=== PATIENT | female | born 1965 | race Caucasian/White ===

== ENCOUNTER 2017-01-04 10:42 | Outpatient (CLI) | payer MEDICAID ==
[2017-01-04 13:06] LABS: CHOL/HDL RATIO 5.6 (<4.4); CHOLESTEROL 209 mg/dL; HDL CHOLESTEROL 37 mg/dL; LDL/HDL RATIO 3.1 (<4.4); TRIGLYCERIDES 297 mg/dL; VLDL CHOLESTEROL 59 mg/dL
== END 2017-01-04 10:43 | disposition home or self-care (01) ==
LOC: LAB.N 10:42
PROVIDERS: ATTEND Nurse Practitioner Gerontology
DX: E78.2 Mixed hyperlipidemia (principal)
CPT/HCPCS: 36415; 80061

== ENCOUNTER 2017-04-07 09:59 | Emergency (ER) | payer MEDICAID ==
[2017-04-07 10:11] VITALS: BP 168/89
--- NOTE | 2017-04-07 11:19 | ED Physician Documentation ---
PD HPI HEENT - Stated complaint Stated Complaint: LT FACIAL SWELLING - Chief complaint Chief Complaint: Heent - History obtained from History obtained from: Patient - History of Present Illness Timing - onset: How many days ago (4) Timing - duration: Days (4) Timing - details: Gradual onset, Still present Location: Tooth (she had tooth extracted 4 days ago urgently due to pain and has had swelling left mandible area since, which is increased today. On AMox for infection.) Associated symptoms: No: Fever, Swollen nodes Similar symptoms before: Has not had sx before Recently seen: Clinic (dentist) Review of Systems Constitutional: denies: Fever Nose: denies: Rhinorrhea / runny nose, Congestion Throat: denies: Sore throat Cardiac: denies: Chest pain / pressure Respiratory: denies: Dyspnea, Cough PD PAST MEDICAL HISTORY - Past Medical History Past Medical History: Yes Cardiovascular: Hypertension Neuro: None Endocrine/Autoimmune: None - Past Surgical History HEENT: Tonsil/Adenoidectomy - Present Medications Home Medications: Ambulatory Orders Medication Instructions Recorded Confirmed Estradiol 0.5 mg PO DAILY 05/03/16 05/03/16 Lisinopril 10 mg PO DAILY 05/03/16 05/03/16 Progesterone,Micronized 05/03/16 [Progesterone] Amox/Clav 500/125 [Augmentin] 1 each PO Q8H 04/07/17 04/07/17 Clindamycin HCl [Cleocin HCl] 300 mg PO TID #20 capsule 04/07/17 HYDROcod/ACETAM 5/325 [[place] 5/325] 1 tab PO Q6H PRN #20 tablet 04/07/17 - Allergies Allergies/Adverse Reactions: Allergies Allergy/AdvReac Type Severity Reaction Status Date / Time No Known Drug Allergies Allergy Verified 02/02/16 10:13 - Social History Does the pt smoke?: Yes Smoking Status: Current every day smoker PD ED PE NORMAL - Vitals Vital signs reviewed: Yes - General General: Alert and oriented X 3, No acute distress, Well developed/nourished - HEENT HEENT: Pharynx benign, Other (healing left lower molar gum without clot. left facial swelling.) - Neck Neck: Supple, no meningeal sign, No adenopathy - Cardiac Cardiac: RRR, No murmur - Respiratory Respiratory: Clear bilaterally Results - Vitals Vitals: Vital Signs - 24 hr 04/07/17 10:08 Temperature 35.8 C L Heart Rate 80 Respiratory 18 Rate Blood Pressure 168/89 H O2 Saturation 97 Oxygen O2 Source Room air PD MEDICAL DECISION MAKING - ED course Complexity details: considered differential (persistent swelling post extraction with gum healing okay. ), d/w patient Departure - Departure Disposition: 01 Home, Self Care Clinical Impression: Dental infection, Status post tooth extraction Condition: Stable Record reviewed to determine appropriate education?: Yes Instructions: ED Tooth Pain Prescriptions: Clindamycin HCl [Cleocin HCl] 300 mg PO TID #20 capsule HYDROcod/ACETAM 5/325 [[place] 5/325] 1 tab PO Q6H PRN #20 tablet PRN Reason: Pain Comments: Drink lots of fluids. Continue the ibuprofen 2-3 times a day. Add clindamycin antibiotic to her current regimen see if that helps with the infection better. Tylenol or hydrocodone if needed for pain. Follow-up with the dentist if not improved over the next several days. Discharge Date/Time: 04/07/17 12:03
[2017-04-07] MEDS ORDERED: CLINDAMYCIN 150 MG CAPSULE PO STA (11:27)
[2017-04-07] MEDS ORDERED: CLINDAMYCIN 150 MG CAPSULE PO ONE (11:39)
== END 2017-04-07 12:03 | disposition home or self-care (01) ==
LOC: ED 09:59
DX: K04.7 Periapical abscess without sinus (principal); Z98.818 Other dental procedure status; F17.200 Nicotine dependence, unspecified, uncomplicated; I10 Essential (primary) hypertension
CPT/HCPCS: 99283; A9270

== ENCOUNTER 2017-06-17 11:12 | Emergency (ER) | payer MEDICAID ==
[2017-06-17 11:30] VITALS: BP 113/68
--- NOTE | 2017-06-17 12:09 | ED Physician Documentation ---
PD HPI URI - Stated complaint Stated Complaint: THROAT PX/DIFF BREATHING - Chief complaint Chief Complaint: General - History obtained from History obtained from: Patient - History of Present Illness Timing - onset: How many days ago (2-3) Timing duration: Days Timing details: Gradual onset Associated symptoms: Fever, Chills, Nasal congestion, Sore throat, Dry cough, Other (biggest complaint is diffuse body aches). No: Chest pain, Dyspnea, NVD Contributing factors: No: Sick contact, Travel Similar symptoms before: Has not had sx before Recently seen: Not recently seen Review of Systems Constitutional: reports: Fever, Chills, Myalgias, Fatigue Nose: reports: Congestion Throat: reports: Sore throat Respiratory: reports: Cough. denies: Dyspnea GI: reports: Nausea. denies: Abdominal Pain, Vomiting, Diarrhea : denies: Dysuria, Frequency Skin: denies: Rash Neurologic: denies: Confused, Headache, Head injury PD PAST MEDICAL HISTORY - Past Medical History Cardiovascular: Hypertension Neuro: None Endocrine/Autoimmune: None - Past Surgical History HEENT: Tonsil/Adenoidectomy - Present Medications Home Medications: Ambulatory Orders Medication Instructions Recorded Confirmed Estradiol 0.5 mg PO DAILY 05/03/16 06/17/17 Lisinopril 10 mg PO DAILY 05/03/16 06/17/17 Dexamethasone [Decadron] 4 mg PO DAILY #5 tablet 06/17/17 HYDROcod/ACETAM 5/325 [[place] 5/325] 1 tab PO Q6H PRN #15 tablet 06/17/17 Naproxen 375 mg PO BID #20 tablet 06/17/17 Ondansetron Odt [Zofran] 4 mg TL Q6H PRN #15 tablet 06/17/17 - Allergies Allergies/Adverse Reactions: Allergies Allergy/AdvReac Type Severity Reaction Status Date / Time No Known Drug Allergies Allergy Verified 06/17/17 11:30 - Social History Does the pt smoke?: Yes Smoking Status: Current every day smoker PD ED PE NORMAL - Vitals Vital signs reviewed: Yes - General General: Alert and oriented X 3, No acute distress, Well developed/nourished - HEENT HEENT: Ears normal, Pharynx benign - Neck Neck: Supple, no meningeal sign, No adenopathy - Cardiac Cardiac: RRR, No murmur - Respiratory Respiratory: Clear bilaterally - Abdomen Abdomen: Soft, Non tender - Derm Derm: Normal color, Warm and dry, No rash - Extremities Extremities: No tenderness to palpate, Normal ROM s pain - Neuro Neuro: Alert and oriented X 3, No motor deficit, Normal speech Results - Vitals Vitals: Oxygen O2 Source Room air - Labs Labs: Microbiology 06/17/17 11:40 Group A Strep Throat Culture - Final Throat MIXED OROPHARYNGEAL CATALINA PRESENT. NO BETA STREP PRESENT IN CULTURE. Laboratory Tests 06/17/17 06/17/17 11:40 11:40 Influenza A (Rapid) Negative Influenza B (Rapid) Negative Influenza Types A,B Ag - Group A Strep Rapid Negative PD MEDICAL DECISION MAKING - ED course Complexity details: considered differential (main issue is significant body pains. Seems flu-like. ), d/w patient Departure - Departure Disposition: 01 Home, Self Care Clinical Impression: Flu-like symptoms Condition: Stable Record reviewed to determine appropriate education?: Yes Instructions: ED Viral Syndrome Follow-Up: Dariana Bose, BUSINESS MANAGER [Primary Care Provider] - Prescriptions: Dexamethasone [Decadron] 4 mg PO DAILY #5 tablet HYDROcod/ACETAM 5/325 [[place] 5/325] 1 tab PO Q6H PRN #15 tablet PRN Reason: Pain Naproxen 375 mg PO BID #20 tablet Ondansetron Odt [Zofran] 4 mg TL Q6H PRN #15 tablet PRN Reason: Nausea / Vomiting Comments: Your symptoms sound flulike though your flu test is negative. Your strep test is also negative. We will presume another viral illness causing this. It will likely be about 7-10 days of illness though it should start tapering in the next couple of days. Will try to treat the symptoms. Use naproxen or ibuprofen 2-3 times daily for pains. Drink lots of fluids. Add Tylenol and/or hydrocodone if needed for pains. Decadron steroid anti-inflammatory daily for 5 more days will help the symptoms as well. Rest at home and drink lots of fluids. Recheck if worsening symptoms generally. Forms: Activity restrictions Discharge Date/Time: 06/17/17 12:36
[2017-06-17] MEDS ORDERED: DEXAMETHASONE 10 MG/ML VIAL PO STA (12:25)
[2017-06-17] MEDS ORDERED: ACETAMINOPHEN 325 MG TABLET PO STA (12:25)
== END 2017-06-17 12:36 | disposition home or self-care (01) ==
LOC: ED 11:12
DX: B34.9 Viral infection, unspecified (principal)
CPT/HCPCS: 87070; 87275; 87276; 87430; 99283; A9270

== ENCOUNTER 2017-06-21 13:25 | Outpatient (CLI) | payer MEDICAID | END 2017-06-21 13:26 | disposition critical access hospital (66) | LOC: EMS 13:25 | PROVIDERS: ATTEND Surgery | DX: R68.89 Other general symptoms and signs (principal) | CPT/HCPCS: A0425; A0429 ==

== ENCOUNTER 2017-06-21 13:44 | Emergency (ER) | payer MEDICAID ==
[2017-06-21 14:33] LABS: BASOPHILS # (AUTO) 0.1 10^3/uL (0.0-0.1); BASOPHILS % (AUTO) 0.7 %; EOSINOPHILS % (AUTO) 0.3 %; HGB - HEMOGLOBIN 14.7 g/dL (12.0-16.0); LYMPHOCYTES % (AUTO) 48.8 %; MEAN CORPUSCULAR HEMOGLOBIN 31.4 pg (27.0-31.0); MEAN CORPUSCULAR VOLUME 92.2 fL (81.0-99.0); MEAN PLATELET VOLUME 7.7 fL (7.9-10.8); MONOCYTES # (AUTO) 0.4 10^3/uL (0.0-1.0); MONOCYTES % (AUTO) 3.8 %; NEUTROPHILS # (AUTO) 4.8 10^3/uL (1.5-6.6); NEUTROPHILS % (AUTO) 46.4 %; PLT - PLATELET COUNT 259 10^3/uL (130-450); RED BLOOD COUNT 4.68 10^6/uL (4.20-5.40); WHITE BLOOD COUNT 10.4 x10^3/uL (4.8-10.8)
[2017-06-21 14:44] LABS: ACETAMINOPHEN 17 ug/mL (10-30); ALBUMIN 4.5 g/dL (3.2-5.5); ALBUMIN/GLOBULIN RATIO 1.5 (1.0-2.2); ALKALINE PHOSPHATASE 56 IU/L (42-121); ALT ALANINE AMINOTRANSFERASE 17 IU/L (10-60); AST ASPARTATE AMINOTRANSFERASE 21 IU/L (10-42); BILIRUBIN,TOTAL 0.3 mg/dL (0.2-1.0); BUN - BLOOD UREA NITROGEN 16 mg/dL (6-20); CALCIUM 9.6 mg/dL (8.5-10.3); CARBON DIOXIDE - CO2 19 mmol/L (21-32); CHLORIDE 105 mmol/L (101-111); CREATININE 1.1 mg/dL (0.4-1.0); GFR - MDRD 52 (>89); GLUCOSE 120 mg/dL (70-100); LIPASE 20 U/L (22-51); SALICYLATE < 6.0 mg/dL; SODIUM 140 mmol/L (135-145); TOTAL PROTEIN 7.5 g/dL (6.7-8.2)
[2017-06-21] MEDS ORDERED: LORazepam 2 MG/ML VIAL IVP STA (14:47)
[2017-06-21] MEDS ORDERED: MAGNESIUM SULFATE 2 GRAM 2 GM/50 ML BAG IV STA (14:47)
[2017-06-21] MEDS ORDERED: MULTIVITAMIN 10 ML in SODIUM CHLORIDE 0.9% 1,000 ML IV STA (14:47)
[2017-06-21] MEDS ORDERED: THIAMINE INJ 100 MG, FOLIC ACID INJ 1 MG in SODIUM CHLORIDE 0.9% 100ML 100 ML IV STA (14:47)
[2017-06-21] MEDS ORDERED: SODIUM CHLORIDE 0.9% 1,000 ML IV ONE (14:48)
--- NOTE | 2017-06-21 14:50 | ED Physician Documentation ---
History of Present Illness - Stated complaint Stated Complaint: ANXIETY - Chief complaint Chief Complaint: General - History obtained from History obtained from: Patient, Family, EMS - History of Present Illness Timing: How many days ago (5) Pain level max: 0 Pain level now: 0 Improved by: nothing Worsened by: nothing - Additonal information Additional information: Patient is a 52-year-old female who presents to the emergency department with complaints of "not feeling well". She states that she cannot describe this any further. States that she has a feeling in her head that passes after a few minutes. She is unable to describe this any further as well. States sometimes she has back pain but is unsure where. Also states that sometimes she has abdominal pain, but also cannot state where. Is unsure if she has had any diarrhea or constipation. Unsure if she has had vomiting. She states that she normally drinks at least 1/5 of alcohol a day, stop drinking abruptly 2 days ago. Has never gone through withdrawals. 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 HEENT: Tonsil/Adenoidectomy - Present Medications Home Medications: Ambulatory Orders Medication Instructions Recorded Confirmed Lorazepam [Ativan] 1 mg PO Q6H PRN #10 tablet 06/21/17 chlordiazePOXIDE [Librium] 50 mg PO Q6H PRN #20 capsule 06/21/17 - Allergies Allergies/Adverse Reactions: Allergies Allergy/AdvReac Type Severity Reaction Status Date / Time No Known Drug Allergies Allergy Verified 06/17/17 11:30 - Social History Does the pt smoke?: Yes Smoking Status: Current every day smoker Does the pt drink ETOH?: Yes Does the pt have substance abuse?: No - Immunizations Immunizations are current?: Yes - POLST Patient has POLST: No PD ED PE NORMAL - Vitals Vital signs reviewed: Yes - General General: No acute distress, Well developed/nourished, Other (alert, oriented to person and place) - HEENT HEENT: PERRL, Moist mucous membranes, Pharynx benign - Neck Neck: Supple, no meningeal sign - Cardiac Cardiac: RRR, Strong equal pulses - Respiratory Respiratory: No respiratory distress, Clear bilaterally - Abdomen Abdomen: Soft, Non distended, Other (mild diffuse TTP without peritoneal signs.) - Derm Derm: Warm and dry - 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, No motor deficit, No sensory deficit, Normal speech - Psych Psych: Other (tearful) Results - Vitals Vitals: Vital Signs - 24 hr 06/21/17 06/21/17 06/21/17 13:48 14:32 15:23 Temperature 36.5 C Heart Rate 81 68 83 Respiratory 30 H 22 16 Rate Blood Pressure 164/95 H 144/95 H 139/93 H O2 Saturation 99 99 97 06/21/17 06/21/17 16:25 17:55 Temperature 36.8 C Heart Rate 89 81 Respiratory 12 14 Rate Blood Pressure 139/86 H 136/76 H O2 Saturation 98 96 Oxygen O2 Source Room air - Labs Labs: Laboratory Tests 06/21/17 06/21/17 06/21/17 14:05 14:05 14:05 WBC 10.4 RBC 4.68 Hgb 14.7 Hct 43.2 MCV 92.2 MCH 31.4 H MCHC 34.0 RDW 15.0 Plt Count 259 MPV 7.7 L Neut # 4.8 Lymph # 5.0 H [place] # 0.4 Eos # 0.0 Baso # 0.1 Absolute Nucleated RBC 0.00 Nucleated RBC % 0.0 Manual Slide Review Indicated Platelet Estimate NORMAL (130-450,000) Platelet Morphology NORMAL APPEARANCE RBC Morph Micro Appear NORMAL APPEARANCE Sodium 140 Potassium 2.9 L Chloride 105 Carbon Dioxide 19 L Anion Gap 16.0 H BUN 16 Creatinine 1.1 H Estimated GFR (MDRD) 52 L Glucose 120 H Calcium 9.6 Total Bilirubin 0.3 AST 21 ALT 17 Alkaline Phosphatase 56 Total Creatine Kinase 22 Total Protein 7.5 Albumin 4.5 Globulin 3.0 Albumin/Globulin Ratio 1.5 Lipase 20 L Urine Color Urine Clarity Urine pH Ur Specific [place] Urine Protein Urine Glucose (UA) Urine Ketones Urine Occult Blood Urine Nitrite Urine Bilirubin Urine Urobilinogen Ur Leukocyte Esterase Urine RBC Urine WBC Ur Squamous Epith Cells Urine Bacteria Ur Microscopic Review Urine Culture Comments Salicylates < 6.0 Urine Opiates Screen Ur Oxycodone Screen Urine Methadone Screen Ur Propoxyphene Screen Acetaminophen 17 Ur Barbiturates Screen Ur Tricyclics Screen Ur Phencyclidine Scrn Ur Amphetamine Screen U Methamphetamines Scrn U Benzodiazepines Scrn Urine Cocaine Screen U Cannabinoids Screen Ethyl Alcohol 74.0 06/21/17 16:20 WBC RBC Hgb Hct MCV MCH MCHC RDW Plt Count MPV Neut # Lymph # [place] # Eos # Baso # Absolute Nucleated RBC Nucleated RBC % Manual Slide Review Platelet Estimate Platelet Morphology RBC Morph Micro Appear Sodium Potassium Chloride Carbon Dioxide Anion Gap BUN Creatinine Estimated GFR (MDRD) Glucose Calcium Total Bilirubin AST ALT Alkaline Phosphatase Total Creatine Kinase Total Protein Albumin Globulin Albumin/Globulin Ratio Lipase Urine Color YELLOW Urine Clarity HAZY Urine pH 6.0 Ur Specific [place] 1.010 Urine Protein NEGATIVE Urine Glucose (UA) NEGATIVE Urine Ketones TRACE Urine Occult Blood NEGATIVE Urine Nitrite NEGATIVE Urine Bilirubin NEGATIVE Urine Urobilinogen 0.2 (NORMAL) Ur Leukocyte Esterase TRACE H Urine RBC 0-5 Urine WBC 6-10 H Ur Squamous Epith Cells RARE Squamous Urine Bacteria Few Ur Microscopic Review INDICATED Urine Culture Comments INDICATED Salicylates Urine Opiates Screen NEGATIVE Ur Oxycodone Screen NEGATIVE Urine Methadone Screen NEGATIVE Ur Propoxyphene Screen NEGATIVE Acetaminophen Ur Barbiturates Screen NEGATIVE Ur Tricyclics Screen NEGATIVE Ur Phencyclidine Scrn NEGATIVE Ur Amphetamine Screen POSITIVE H U Methamphetamines Scrn POSITIVE H U Benzodiazepines Scrn POSITIVE H Urine Cocaine Screen NEGATIVE U Cannabinoids Screen POSITIVE H Ethyl Alcohol PD MEDICAL DECISION MAKING - ED course Complexity details: reviewed results, re-evaluated patient, considered differential, d/w patient, d/w family, 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 Symptoms fully resolved with a banana bag and Ativan in the emergency department. She is calling to try to find a detox bed, [facility] is looking for one for her. A bed was unable to be found tonight and she is comfortable going home and staying with her family. Her family is comfortable taking her home at this time as well. Will write for Librium and a small amount of Ativan. Counseled not to drink while taking the Librium or Ativan. She will continue to look for an outpatient detox bed. Has not had any hallucinations or seizures here. Patient and family counseled regarding signs and symptoms for which I believe and urgent re-evaluation would be necessary. Patient with good understanding of and agreement to plan and is comfortable going home at this time This document was made in part using voice recognition software. While efforts are made to proofread this document, sound alike and grammatical errors may occur. Social work was also consulted and evaluated the patient in the emergency department. Departure - Departure Disposition: 01 Home, Self Care Clinical Impression: Alcohol withdrawal Qualifiers: Complication of substance-induced condition: uncomplicated Qualified Code(s): F10.230 - Alcohol dependence with withdrawal, uncomplicated Condition: Good Instructions: ED Withdrawal Alcohol Follow-Up: Dariana Bose ARNP [Primary Care Provider] - Within 3 Days Prescriptions: chlordiazePOXIDE [Librium] 50 mg PO Q6H PRN #20 capsule PRN Reason: Alcohol Withdrawal Lorazepam [Ativan] 1 mg PO Q6H PRN #10 tablet PRN Reason: Alcohol Withdrawal Comments: Do not drink alcohol while taking librium or ativan. Make sure to follow up tomorrow with detox facilities to help you detox. Return if you worsen. You need to someone to be at home with you tonight and tomorrow. Discharge Date/Time: 06/21/17 18:31
[2017-06-21 14:53] LABS: PLATELET MORPHOLOGY NORMAL APPEARANCE (NORMAL)
[2017-06-21 14:54] LABS: PLATELET ESTIMATE, MANUAL NORMAL (130-450,000) (NORMAL); RBC MORPHOLOGY (MULTIPLE) NORMAL APPEARANCE (NORMAL)
[2017-06-21] MEDS ORDERED: LORazepam 2 MG/ML VIAL ONE (14:54)
[2017-06-21] MEDS ORDERED: POTASSIUM BICARB 25 MEQ TABLET PO STA (15:16)
[2017-06-21 16:31] LABS: MUDS CUTOFF CONCENTRATIONS CUTOFF CONC BELOW:
[2017-06-21] MEDS ORDERED: LORazepam 0.5 MG TABLET PO STA (16:31)
[2017-06-21 16:32] LABS: BILIRUBIN,URINE NEGATIVE (NEGATIVE); GLUCOSE, URINE (UA) NEGATIVE (NEGATIVE); KETONES,URINE (UA) TRACE mg/dL (NEGATIVE); LEUKOCYTE ESTERASE, URINE TRACE (NEGATIVE); NITRITE,URINE NEGATIVE (NEGATIVE); OCCULT BLOOD,URINE NEGATIVE (NEGATIVE); PROTEIN,URINE NEGATIVE (NEGATIVE); UROBILINOGEN,URINE 0.2 (NORMAL) E.U./dL (NORMAL)
[2017-06-21 16:34] LABS: CLARITY,URINE HAZY (CLEAR)
[2017-06-21 16:42] LABS: BACTERIA,URINE Few /HPF (None Seen); RBC,URINE 0-5 /HPF (0-5); SQUAMOUS EPITHELIAL CELL,UR RARE Squamous (<= Few)
[2017-06-21 16:43] LABS: AMPHETAMINE SCREEN,URINE POSITIVE (NEGATIVE); BENZODIAZEPINES SCREEN, URINE POSITIVE (NEGATIVE); COCAINE SCREEN URINE NEGATIVE (NEGATIVE); METHADONE SCREEN, URINE NEGATIVE (NEGATIVE); METHAMPHETAMINES SCREEN, URINE POSITIVE (NEGATIVE); OPIATE SCREEN, URINE NEGATIVE (NEGATIVE); OXYCODONE SCREEN, URINE NEGATIVE (NEGATIVE); PROPOXYPHENE SCREEN, URINE NEGATIVE (NEGATIVE); TRICYCLIC ANTIDEPRESSANT,URINE NEGATIVE (NEGATIVE)
[2017-06-21 17:56] VITALS: BP 136/76
== END 2017-06-21 18:31 | disposition home or self-care (01) ==
LOC: EDUNIT# → ED 13:44
DX: F10.230 Alcohol dependence with withdrawal, uncomplicated (principal); I10 Essential (primary) hypertension; F17.200 Nicotine dependence, unspecified, uncomplicated
CPT/HCPCS: 36415; 80053; 80306; 80307; 80320; 80329; 81001; 82550; 83690; 85025; 87077; 87086; 87181; 96365; 96368; 96375; 99284; A9270; J2060; J3411; 81003

== ENCOUNTER 2017-06-22 17:42 | Outpatient (CLI) | payer MEDICAID | END 2017-06-22 17:43 | disposition critical access hospital (66) | LOC: EMS 17:42 | PROVIDERS: ATTEND Surgery | DX: T42.4X2A Poisoning by benzodiazepines, intentional self-harm, initial encounter (principal) | CPT/HCPCS: A0425; A0427 ==

== ENCOUNTER 2017-06-22 17:58 | Emergency (ER) | payer MEDICAID ==
[2017-06-22] MEDS ORDERED: SODIUM CHLORIDE 0.9% 1,000 ML IV ONE ×2 (18:12)
--- NOTE | 2017-06-22 18:14 | ED Physician Documentation ---
PD HPI OVERDOSE - Stated complaint Stated Complaint: OD - History obtained from History obtained from: Patient, EMS - History of Present Illness Timing - onset: How many hours ago (2) Subtance(s) ingested: Multiple (ativan 10mg PO and librium 500mg PO) Associated symptoms: Other (drowsy) Contributing factors: Depresssed, Suicidal, Alchoholic Pain level max: 0 Pain level now: 0 Similar symptoms before: Diagnosis (depression, SI) Recently seen: Emergency Dept (yesterday for EtOH withdrawal) Review of Systems Unable to obtain: Uncooperative PD PAST MEDICAL HISTORY - Past Medical History Cardiovascular: Hypertension Neuro: None Endocrine/Autoimmune: None - Past Surgical History 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 HEENT: Tonsil/Adenoidectomy - Present Medications Home Medications: Ambulatory Orders Medication Instructions Recorded Confirmed Lorazepam [Ativan] 1 mg PO Q6H PRN #10 tablet 06/21/17 chlordiazePOXIDE [Librium] 50 mg PO Q6H PRN #20 capsule 06/21/17 - Allergies Allergies/Adverse Reactions: Allergies Allergy/AdvReac Type Severity Reaction Status Date / Time No Known Drug Allergies Allergy Verified 06/22/17 18:15 - Social History Does the pt smoke?: Yes Smoking Status: Current every day smoker Does the pt drink ETOH?: Yes Does the pt have substance abuse?: No - Immunizations Immunizations are current?: Yes - POLST Patient has POLST: No PD ED PE NORMAL - Vitals Vital signs reviewed: Yes - General General: Alert and oriented X 3, No acute distress - HEENT HEENT: Moist mucous membranes - Neck Neck: Supple, no meningeal sign - Cardiac Cardiac: RRR, Strong equal pulses - Respiratory Respiratory: No respiratory distress, Clear bilaterally - Abdomen Abdomen: Soft, Non tender, Non distended - Back Back: No spinal TTP - Derm Derm: Warm and dry - Neuro Neuro: Alert and oriented X 3 - Psych Psych: Other (uncooperative, states doesn't want help and just wants to . States attempted suicide 20x in the past. Blames her mother for not allowing her to see a psychiatrist as a child. ) Results - Vitals Vitals: Vital Signs - 24 hr 06/22/17 06/22/17 06/22/17 18:12 19:27 20:40 Temperature 36.1 C L Heart Rate 112 H 85 84 Respiratory 16 21 18 Rate Blood Pressure 139/79 H 106/66 113/74 O2 Saturation 100 91 L 98 06/22/17 21:05 Temperature Heart Rate 81 Respiratory 15 Rate Blood Pressure 119/85 H O2 Saturation 99 Oxygen O2 Source Room air - EKG (time done) 1825 Rate: Rate (enter#) (97) Rhythm: NSR [place]: LAD (borderline) Intervals: Normal MT QRS: Normal Ischemia: Non specific changes - Labs Labs: Laboratory Tests 06/22/17 06/22/17 06/22/17 18:42 18:42 20:32 WBC 11.8 H RBC 4.22 Hgb 13.1 Hct 39.7 MCV 93.9 MCH 31.1 H MCHC 33.1 RDW 14.7 Plt Count 234 MPV 7.5 L Neut # 5.0 Lymph # 6.1 H [place] # 0.5 Eos # 0.1 Baso # 0.1 Absolute Nucleated RBC 0.00 Nucleated RBC % 0.0 WBC Morphology 1+REACTIVE LYMPHS Platelet Estimate NORMAL (130-450,000) Platelet Morphology NORMAL APPEARANCE RBC Morph Micro Appear NORMAL APPEARANCE Sodium 140 Potassium 3.4 L Chloride 109 Carbon Dioxide 23 Anion Gap 8.0 BUN 21 H Creatinine 1.2 H Estimated GFR (MDRD) 47 L Glucose 100 Calcium 9.1 Total Bilirubin 0.4 AST 20 ALT 20 Alkaline Phosphatase 64 Total Protein 6.3 L Albumin 3.9 Globulin 2.4 Albumin/Globulin Ratio 1.6 Lipase 25 Urine Color YELLOW Urine Clarity CLEAR Urine pH 6.0 Ur Specific [place] 1.020 Urine Protein NEGATIVE Urine Glucose (UA) NEGATIVE Urine Ketones NEGATIVE Urine Occult Blood NEGATIVE Urine Nitrite NEGATIVE Urine Bilirubin NEGATIVE Urine Urobilinogen 0.2 (NORMAL) Ur Leukocyte Esterase NEGATIVE Ur Microscopic Review NOT INDICATED Urine Culture Comments NOT INDICATED Salicylates < 6.0 Urine Opiates Screen NEGATIVE Ur Oxycodone Screen NEGATIVE Urine Methadone Screen NEGATIVE Ur Propoxyphene Screen NEGATIVE Acetaminophen 13 Ur Barbiturates Screen NEGATIVE Ur Tricyclics Screen NEGATIVE Ur Phencyclidine Scrn NEGATIVE Ur Amphetamine Screen POSITIVE H U Methamphetamines Scrn POSITIVE H U Benzodiazepines Scrn POSITIVE H Urine Cocaine Screen NEGATIVE U Cannabinoids Screen POSITIVE H Ethyl Alcohol < 5.0 PD MEDICAL DECISION MAKING - ED course Complexity details: reviewed results, re-evaluated patient, considered differential, d/w patient ED course: 183 - Poison control contacted and recommends observation for 4 hours post ingestion. Patient is a 52-year-old female who overdosed on Ativan and Librium today. She was not drowsy in the emergency department. She was intermittently belligerent , ripped out her IV twice. Threatened to leave. Eventually she was able to be calmed down. She states that she still does not want treatment and still does not want to go to a psychiatric facility. States she put herself in intensive outpatient therapy in the past. States that she does not think that it helped and does not want to do this again. Her mother called the emergency department and stated that she found a rehab bed for the patient at [address] [facility] called for evaluation for suicidal ideation and patient will be signed out to the oncoming emergency department physician. Patient is medically clear for psychiatric care This document was made in part using voice recognition software. While efforts are made to proofread this document, sound alike and grammatical errors may occur. States last used methamphetamine 2 days ago. Departure - Departure Clinical Impression: Suicidal ideation, Intentional overdose of drug in tablet form Depression Qualifiers: Depression Type: unspecified Qualified Code(s): F32.9 - Major depressive disorder, single episode, unspecified Condition: Stable
[2017-06-22 18:49] LABS: BASOPHILS # (AUTO) 0.1 10^3/uL (0.0-0.1); BASOPHILS % (AUTO) 0.7 %; EOSINOPHILS # (AUTO) 0.1 10^3/uL (0.0-0.7); EOSINOPHILS % (AUTO) 1.2 %; HGB - HEMOGLOBIN 13.1 g/dL (12.0-16.0); LYMPHOCYTES # (AUTO) 6.1 10^3/uL (1.5-3.5); LYMPHOCYTES % (AUTO) 51.6 %; MEAN CORPUSCULAR HEMOGLOBIN 31.1 pg (27.0-31.0); MEAN CORPUSCULAR HGB CONC 33.1 g/dL (32.0-36.0); MEAN CORPUSCULAR VOLUME 93.9 fL (81.0-99.0); MEAN PLATELET VOLUME 7.5 fL (7.9-10.8); MONOCYTES # (AUTO) 0.5 10^3/uL (0.0-1.0); MONOCYTES % (AUTO) 3.8 %; NEUTROPHILS % (AUTO) 42.7 %; PLT - PLATELET COUNT 234 10^3/uL (130-450); RED BLOOD COUNT 4.22 10^6/uL (4.20-5.40); RED CELL DISTRIBUTION WIDTH 14.7 % (12.0-15.0); WHITE BLOOD COUNT 11.8 x10^3/uL (4.8-10.8)
[2017-06-22 19:03] LABS: ACETAMINOPHEN 13 ug/mL (10-30); ALBUMIN 3.9 g/dL (3.2-5.5); ALBUMIN/GLOBULIN RATIO 1.6 (1.0-2.2); ALKALINE PHOSPHATASE 64 IU/L (42-121); ALT ALANINE AMINOTRANSFERASE 20 IU/L (10-60); AST ASPARTATE AMINOTRANSFERASE 20 IU/L (10-42); BILIRUBIN,TOTAL 0.4 mg/dL (0.2-1.0); BUN - BLOOD UREA NITROGEN 21 mg/dL (6-20); CALCIUM 9.1 mg/dL (8.5-10.3); CARBON DIOXIDE - CO2 23 mmol/L (21-32); CHLORIDE 109 mmol/L (101-111); CREATININE 1.2 mg/dL (0.4-1.0); GFR - MDRD 47 (>89); GLUCOSE 100 mg/dL (70-100); LIPASE 25 U/L (22-51); SALICYLATE < 6.0 mg/dL; SODIUM 140 mmol/L (135-145); TOTAL PROTEIN 6.3 g/dL (6.7-8.2)
[2017-06-22 19:25] LABS: PLATELET ESTIMATE, MANUAL NORMAL (130-450,000) (NORMAL); PLATELET MORPHOLOGY NORMAL APPEARANCE (NORMAL)
[2017-06-22 19:26] LABS: RBC MORPHOLOGY (MULTIPLE) NORMAL APPEARANCE (NORMAL)
[2017-06-22 20:35] LABS: MUDS CUTOFF CONCENTRATIONS CUTOFF CONC BELOW:
[2017-06-22 20:38] LABS: BILIRUBIN,URINE NEGATIVE (NEGATIVE); GLUCOSE, URINE (UA) NEGATIVE (NEGATIVE); KETONES,URINE (UA) NEGATIVE (NEGATIVE); LEUKOCYTE ESTERASE, URINE NEGATIVE (NEGATIVE); NITRITE,URINE NEGATIVE (NEGATIVE); OCCULT BLOOD,URINE NEGATIVE (NEGATIVE); PROTEIN,URINE NEGATIVE (NEGATIVE); UROBILINOGEN,URINE 0.2 (NORMAL) E.U./dL (NORMAL)
[2017-06-22 20:39] LABS: CLARITY,URINE CLEAR (CLEAR)
[2017-06-22 20:47] LABS: AMPHETAMINE SCREEN,URINE POSITIVE (NEGATIVE); BENZODIAZEPINES SCREEN, URINE POSITIVE (NEGATIVE); COCAINE SCREEN URINE NEGATIVE (NEGATIVE); METHADONE SCREEN, URINE NEGATIVE (NEGATIVE); METHAMPHETAMINES SCREEN, URINE POSITIVE (NEGATIVE); OPIATE SCREEN, URINE NEGATIVE (NEGATIVE); OXYCODONE SCREEN, URINE NEGATIVE (NEGATIVE); PROPOXYPHENE SCREEN, URINE NEGATIVE (NEGATIVE); TRICYCLIC ANTIDEPRESSANT,URINE NEGATIVE (NEGATIVE)
[2017-06-22] MEDS ORDERED: OLANZapine 10 MG VIAL IM STA (23:30)
[2017-06-23] MEDS ORDERED: NICOTINE 14 MG PATCH TOP STA (00:17)
--- NOTE | 2017-06-23 00:58 | ED Physician Documentation ---
ED Addendum - Addendum Addendum: 06/23/17 00:56 Patient was signed over to [facility] from Dr. Mccarthy. patient was pending evaluation from [facility] and disposition. [facility] arrived and evaluated the patient. They recommended inpatient care. Patient became slightly agitated and was treated with zyprexa 10mg IM. Patient was accepted by Dr. Carroll at [facility]. Arrangements were made and patient was transferred in stable condition.
[2017-06-23 02:27] VITALS: BP 106/69
== END 2017-06-23 02:27 ==
LOC: EDUNIT# → SUPCPDRO 17:58 → ED 17:58
DX: T42.4X2A Poisoning by benzodiazepines, intentional self-harm, initial encounter (principal); F32.9 Major depressive disorder, single episode, unspecified; I45.81 Long QT syndrome; I10 Essential (primary) hypertension; F17.200 Nicotine dependence, unspecified, uncomplicated
CPT/HCPCS: 36415; 51701; 80053; 80306; 80307; 80320; 80329; 81003; 83690; 85025; 93005; 96360; 96361; 96372; 99285; A9270; 81001; 87086

== ENCOUNTER 2018-10-26 08:00 | Outpatient (CLI) | payer MEDICAID ==
[2018-10-26 19:11] LABS: BASOPHILS # (AUTO) 0.1 10^3/uL (0.0-0.1); BASOPHILS % (AUTO) 0.7 %; EOSINOPHILS # (AUTO) 0.2 10^3/uL (0.0-0.7); HGB - HEMOGLOBIN 14.9 g/dL (12.0-16.0); LYMPHOCYTES # (AUTO) 4.7 10^3/uL (1.5-3.5); LYMPHOCYTES % (AUTO) 45.7 %; MEAN CORPUSCULAR HEMOGLOBIN 30.9 pg (27.0-31.0); MEAN CORPUSCULAR HGB CONC 33.1 g/dL (32.0-36.0); MEAN CORPUSCULAR VOLUME 93.2 fL (81.0-99.0); MEAN PLATELET VOLUME 9.3 fL (7.9-10.8); MONOCYTES # (AUTO) 0.5 10^3/uL (0.0-1.0); MONOCYTES % (AUTO) 5.2 %; NEUTROPHILS # (AUTO) 4.8 10^3/uL (1.5-6.6); NEUTROPHILS % (AUTO) 46.4 %; PLT - PLATELET COUNT 229 10^3/uL (130-450); RED BLOOD COUNT 4.82 10^6/uL (4.20-5.40); RED CELL DISTRIBUTION WIDTH 14.5 % (12.0-15.0); WHITE BLOOD COUNT 10.3 x10^3/uL (4.8-10.8)
[2018-10-26 19:16] LABS: ALBUMIN 4.1 g/dL (3.2-5.5); ALBUMIN/GLOBULIN RATIO 1.4 (1.0-2.2); ALKALINE PHOSPHATASE 128 IU/L (42-121); ALT ALANINE AMINOTRANSFERASE 36 IU/L (10-60); AST ASPARTATE AMINOTRANSFERASE 22 IU/L (10-42); BILIRUBIN,TOTAL 0.8 mg/dL (0.2-1.0); BUN - BLOOD UREA NITROGEN 14 mg/dL (6-20); CALCIUM 9.3 mg/dL (8.5-10.3); CARBON DIOXIDE - CO2 23 mmol/L (21-32); CHLORIDE 103 mmol/L (101-111); CHOLESTEROL 236 mg/dL; CREATININE 0.9 mg/dL (0.4-1.0); GFR - MDRD 65 (>89); GLUCOSE 104 mg/dL (70-100); HDL CHOLESTEROL 47 mg/dL; LDL CHOLESTEROL,CALCULATED 123 mg/dL; LDL/HDL RATIO 2.6 (<4.4); SODIUM 136 mmol/L (135-145); TOTAL PROTEIN 7.1 g/dL (6.7-8.2); VLDL CHOLESTEROL 66 mg/dL
== END 2018-10-26 23:59 | disposition home or self-care (01) ==
LOC: LAB.N 08:00
PROVIDERS: ATTEND Family Medicine
DX: I10 Essential (primary) hypertension (principal); E78.2 Mixed hyperlipidemia
CPT/HCPCS: 36415; 80053; 80061; 83721; 84443; 85025

== ENCOUNTER 2018-11-04 10:05 | Emergency (ER) | payer MEDICAID ==
[2018-11-04 10:17] VITALS: BP 183/90
--- NOTE | 2018-11-04 10:41 | ED Physician Documentation ---
PD HPI LOWER EXT INJURY - Stated complaint Stated Complaint: ANKLE PX - Chief complaint Chief Complaint: Ext Problem - History obtained from History obtained from: Patient, Family - History of Present Illness PD HPI LOW EXT INJURY LOCATION: Right, Ankle, Foot Type of injury: Fall, Twist Where injury occurred: Home Timing - onset: Last night Timing - duration: Hours Timing - details: Abrupt onset, Still present Improved by: Rest, Immobilization Worsened by: Moving, Palpating Associated symptoms: No: Weakness, Numbness, Tingling, Swelling Contributing factors: No: Anticoagulated Similar symptoms before: Diagnosis (sprained ankle) Recently seen: Not recently seen - Additional information Additional information: 53-year-old female was going down some steps last night and twisted her ankle when she missed the last step. She has some pain to the medial aspect of the ankle and foot especially with weightbearing. She is using crutches at home she has coming to the emergency department this morning in her father's wheelchair. 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 HEENT: Tonsil/Adenoidectomy - Present Medications Home Medications: Ambulatory Orders Medication Instructions Recorded Confirmed Lorazepam [Ativan] 1 mg PO Q6H PRN #10 tablet 06/21/17 chlordiazePOXIDE [Librium] 50 mg PO Q6H PRN #20 capsule 06/21/17 - Allergies Allergies/Adverse Reactions: Allergies Allergy/AdvReac Type Severity Reaction Status Date / Time No Known Drug Allergies Allergy Verified 11/04/18 10:12 - Social History Does the pt smoke?: Yes Smoking Status: Current every day smoker Does the pt drink ETOH?: Yes Does the pt have substance abuse?: No - Immunizations Immunizations are current?: Yes - POLST Patient has POLST: No PD ED PE NORMAL - Vitals Vital signs reviewed: Yes (hypertensive ) - General General: Alert and oriented X 3, No acute distress, Well developed/nourished - HEENT HEENT: Atraumatic, PERRL, EOMI - Neck Neck: Supple, no meningeal sign - Respiratory Respiratory: No respiratory distress - Derm Derm: Normal color, Warm and dry, No rash - Extremities Extremities: No deformity, No edema, Other (There is point tenderness to the right foot medially over the cuboid. There is no tenderness over the proximal 5th. distal n/v is intact. ) - Neuro Neuro: Alert and oriented X 3, signal wirer 2-12 intact, No motor deficit, No sensory deficit, Normal speech Eye Opening: Spontaneous Motor: Obeys Commands Verbal: Oriented GCS Score: 15 - Psych Psych: Normal mood, Normal affect Results - Vitals Vitals: Vital Signs - 24 hr 11/04/18 10:10 Heart Rate 83 Respiratory 14 Rate Blood Pressure 183/90 H O2 Saturation 97 Oxygen O2 Source Room air - Rads (name of study) foot Radiology: Prelim report reviewed (Impression: 1. No acute fracture demonstrated. 2 Hallux valgus with the first MTP joint degenerative changes. Question prior bunionectomy.), EMP read indepedently, See rad report PD MEDICAL DECISION MAKING - ED course Complexity details: reviewed results, re-evaluated patient, considered differential, d/w patient, d/w family ED course: 53-year-old female with twist of the right foot has a sprain to the ankle. She is placed in an Aircast. Departure - Departure Disposition: 01 Home, Self Care Clinical Impression: Ankle sprain Qualifiers: Encounter type: initial encounter Involved ligament of ankle: other ligament Laterality: right Qualified Code(s): S93.491A - Sprain of other ligament of right ankle, initial encounter Condition: Stable Instructions: ED Sprain Ankle W X Ray Follow-Up: Dariana Bose ARNP [Primary Care Provider] -
--- NOTE | 2018-11-04 10:44 | XRAY Report ---
Reason: pain, swelling, bruising Procedure Date: 11/04/2018 Accession Number: [id number] / [id number] Procedure: XR - Foot 3 View RT CPT Code: FULL RESULT: EXAM: RIGHT FOOT RADIOGRAPHY EXAM DATE: 11/04/2018 10:23 AM. CLINICAL HISTORY: Pain, swelling, bruising. COMPARISON: None. TECHNIQUE: 3 views. FINDINGS: Bones: Question prior medial first metatarsal head shaving. No acute fracture. Joints: First metatarsophalangeal joint space narrowing. Approximately 30 degree hallux valgus. Soft Tissues: Posterior calcaneal enthesophyte. IMPRESSION: 1. No acute fracture demonstrated. 2. Hallux valgus with first MTP joint degenerative changes. Question prior bunionectomy. RADIA
--- NOTE | 2018-11-04 10:56 | XRAY Report ---
Reason: pain, swelling, brusing Procedure Date: 11/04/2018 Accession Number: [id number] / [id number] Procedure: XR - Ankle 3 View RT CPT Code: FULL RESULT: EXAM: RIGHT ANKLE RADIOGRAPHY EXAM DATE: 11/04/2018 10:24 AM. CLINICAL HISTORY: Pain, swelling, bruising. COMPARISON: None. TECHNIQUE: 3 views. FINDINGS: Bones: Normal. No fractures or bone lesions. Joints: Normal. No effusion. No subluxations. The ankle mortise is normally aligned. Soft Tissues: Posterior calcaneal enthesophyte. IMPRESSION: No fracture evident. RADIA
== END 2018-11-04 10:58 | disposition home or self-care (01) ==
LOC: ED 10:05
DX: S93.491A Sprain of other ligament of right ankle, initial encounter (principal); X50.1XXA Overexertion from prolonged static or awkward postures, initial encounter; Y93.01 Activity, walking, marching and hiking; Y92.009 Unspecified place in unspecified non-institutional (private) residence as the place of occurrence of the external cause; M20.11 Hallux valgus (acquired), right foot; I10 Essential (primary) hypertension; F17.200 Nicotine dependence, unspecified, uncomplicated
CPT/HCPCS: 99282; 99283

== ENCOUNTER 2018-12-20 09:18 | Day surgery (SDC) | payer MEDICAID ==
[2018-12-20] MEDS ORDERED: LACTATED RINGERS 1,000 ML IV ONE (09:24)
[2018-12-20] MEDS ORDERED: MIDAZOLAM 2 MG/2 ML VIAL IVP ONE (11:15)
[2018-12-20] MEDS ORDERED: fentaNYL 250 MCG/5 ML VIAL IVP ONE (11:15)
[2018-12-20 11:55] VITALS: BP 133/81
== END 2018-12-20 09:19 | disposition home or self-care (01) ==
LOC: SDS 09:18
PROVIDERS: ATTEND Surgery
PROC: 0DJD8ZZ Inspection of Lower Intestinal Tract, Via Natural or Artificial Opening Endoscopic (ICD-10-PCS; principal; 2018-12-20 09:45)
DX: K57.31 Diverticulosis of large intestine without perforation or abscess with bleeding (principal); K64.4 Residual hemorrhoidal skin tags; I10 Essential (primary) hypertension; Z72.0 Tobacco use
CPT/HCPCS: 45378; J7120

== ENCOUNTER 2019-02-24 11:36 | Emergency (ER) | payer MEDICAID ==
[2019-02-24 11:44] VITALS: BP 136/77
[2019-02-24] MEDS ORDERED: cefTRIAXone 1 GM VIAL IM STA (11:57)
[2019-02-24] MEDS ORDERED: LIDOCAINE 1% 2 ML VIAL MC ONE (11:57)
[2019-02-24] MEDS ORDERED: CHERRY SYRUP 10 ML UDC PO ONE (11:57)
[2019-02-24] MEDS ORDERED: DEXAMETHASONE 10 MG/ML VIAL PO STA (11:57)
--- NOTE | 2019-02-24 11:59 | ED Physician Documentation ---
History of Present Illness - Stated complaint Stated Complaint: MOUTH PX/SWELLING - Chief complaint Chief Complaint: Heent - History obtained from History obtained from: Patient - History of Present Illness Timing: How many days ago (several days) Pain level max: 8 Pain level now: 8 Improved by: nothing Worsened by: nothing - Additonal information Additional information: L lower jaw pain and swelling. Sees her dentist on Tuesday. 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 HEENT: Tonsil/Adenoidectomy - Present Medications Home Medications: Ambulatory Orders Medication Instructions Recorded Confirmed Atorvastatin Calcium 20 mg PO DAILY 12/20/18 02/24/19 Escitalopram Oxalate 20 mg PO DAILY 12/20/18 02/24/19 Lisinopril 40 mg PO DAILY 12/20/18 02/24/19 Oxycodone HCl/Acetaminophen 1 - 2 each PO Q6H PRN #14 tablet 02/24/19 [Percocet 5-325 mg Tablet] Penicillin V Potassium 500 mg PO Q6HR #40 tablet 02/24/19 - Allergies Allergies/Adverse Reactions: Allergies Allergy/AdvReac Type Severity Reaction Status Date / Time No Known Drug Allergies Allergy Verified 11/04/18 10:12 - Social History Does the pt smoke?: Yes Smoking Status: Current every day smoker Does the pt drink ETOH?: Yes Does the pt have substance abuse?: No - Immunizations Immunizations are current?: Yes - POLST Patient has POLST: No PD ED PE NORMAL - Vitals Vital signs reviewed: Yes - General General: Alert and oriented X 3, No acute distress - HEENT HEENT: Moist mucous membranes - Neck Neck: Supple, no meningeal sign, No adenopathy - Cardiac Cardiac: RRR - Respiratory Respiratory: No respiratory distress, Clear bilaterally - Derm Derm: Warm and dry - Neuro Neuro: Alert and oriented X 3 - Psych Psych: Normal mood, Normal affect PD ED PE EXPANDED - HEENT HEENT Visual: 1 - tenderness (gingival swelling, no fluctuance.) Results - Vitals Vitals: Vital Signs - 24 hr 02/24/19 11:42 Temperature 36.4 C L Heart Rate 89 Respiratory 18 Rate Blood Pressure 136/77 H O2 Saturation 97 Oxygen O2 Source Room air PD MEDICAL DECISION MAKING - ED course Complexity details: reviewed results, re-evaluated patient, considered differential, d/w patient, d/w family ED course: 53-year-old female presents to the emergency department with left mandibular swelling and pain. No fluctuance. No drainable abscess. Poor dentition. Will place on antibiotics and pain medication. No Richard's angina. Patient counseled regarding signs and symptoms for which I believe and urgent re- evaluation would be necessary. Patient with good understanding of and agreement to plan and is comfortable going home at this time This document was made in part using voice recognition software. While efforts are made to proofread this document, sound alike and grammatical errors may occur. Normal phonation. No trismus Departure - Departure Disposition: 01 Home, Self Care Clinical Impression: Dental infection Condition: Good Instructions: ED Tooth Pain Follow-Up: your,dentist on Tuesday. [Other] Prescriptions: Penicillin V Potassium 500 mg PO Q6HR #40 tablet Oxycodone HCl/Acetaminophen [Percocet 5-325 mg Tablet] 1 - 2 each PO Q6H PRN #14 tablet PRN Reason: pain Comments: Take all antibiotics until gone. Return if you worsen. Follow-up with your dentist for further evaluation and care. Do not drink alcohol or drive while on narcotic pain medicine. Note that many narcotic pain relievers also contain tylenol/acetaminophen. Please ensure that your total dose of acetaminophen from all sources does not exceed 3 grams (3000mg) per day. You may constipated on this medication, take a stool softener such as "Colace" twice a day while you are on it. Also recommend a [id number] laxative such as senna or MiraLAX any day that you do not have a bowel movement. If you received narcotic pain medication in the emergency department, do not drive or operate machinery for the next 24 hours. Discharge Date/Time: 02/24/19 12:12
== END 2019-02-24 12:12 | disposition home or self-care (01) ==
LOC: ED 11:36
DX: K04.7 Periapical abscess without sinus (principal); I10 Essential (primary) hypertension; F17.200 Nicotine dependence, unspecified, uncomplicated
CPT/HCPCS: 96372; 99283; A9270

== ENCOUNTER 2019-05-01 16:03 | Outpatient (CLI) | payer MEDICAID | END 2019-05-01 16:04 | disposition critical access hospital (66) | LOC: EMS 16:03 | PROVIDERS: ATTEND Surgery | DX: R11.2 Nausea with vomiting, unspecified (principal); R61 Generalized hyperhidrosis; R19.7 Diarrhea, unspecified; R25.2 Cramp and spasm ==

== ENCOUNTER 2019-07-06 12:33 | Outpatient (CLI) | payer MEDICAID | END 2019-07-06 12:34 | disposition critical access hospital (66) | LOC: EMS 12:33 | PROVIDERS: ATTEND Surgery | DX: R45.851 Suicidal ideations (principal); R45.1 Restlessness and agitation; Z72.89 Other problems related to lifestyle | CPT/HCPCS: A0425; A0429; A0999 ==

== ENCOUNTER 2019-07-06 12:56 | Emergency (ER) | payer MEDICAID ==
[2019-07-06] MEDS ORDERED: HALOPERIDOL 5 MG/ML VIAL IVP ONE (13:08)
[2019-07-06] MEDS ORDERED: MIDAZOLAM 2 MG/2 ML VIAL IVP STA (13:11)
--- NOTE | 2019-07-06 13:11 | ED Physician Documentation ---
History of Present Illness - Stated complaint Stated Complaint: SI/ETOH - Additonal information Additional information: This is a 54-year-old female with a history of suicidal ideation, alcohol use, who presents with suicidal statements and alcohol intoxication. She reportedly has made several statements over the last 3 days that she is suicidal. Today she was talking to her counselor the phone and made suicidal statements, EMS was called and when they arrived she initially was voluntary about coming into the hospital, and then on the way to the ambulance she decided she did not want to come in after all, but she was brought in involuntarily after police signed a 72 hour hold order. She was agitated on arrival. She is largely uncooperative with questioning, but does state that she is in a depressive breakdown. She does not answer my questions as to whether she has taken any other drugs other than alcohol, she did not quantify how much alcohol she had today. She denies taking any pills or overdoses or self harming activities other than drinking alcohol today. 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 HEENT: Tonsil/Adenoidectomy - Present Medications Home Medications: Ambulatory Orders Medication Instructions Recorded Confirmed Atorvastatin Calcium 20 mg PO DAILY 12/20/18 07/07/19 Escitalopram Oxalate 20 mg PO DAILY 12/20/18 07/07/19 lisinopriL [Lisinopril] 40 mg PO DAILY 12/20/18 07/07/19 Atorvastatin Calcium 20 mg PO DAILY #20 tablet 07/07/19 Escitalopram Oxalate 20 mg PO DAILY #20 tablet 07/07/19 Lisinopril [Zestril] 40 mg PO DAILY #20 tablet 07/07/19 - Allergies Allergies/Adverse Reactions: Allergies Allergy/AdvReac Type Severity Reaction Status Date / Time No Known Drug Allergies Allergy Verified 07/06/19 13:02 - Social History Does the pt smoke?: Yes Smoking Status: Current every day smoker Does the pt drink ETOH?: Yes Does the pt have substance abuse?: No - Immunizations Immunizations are current?: Yes - POLST Patient has POLST: No PD ED PE NORMAL - General General: Other (Agitated, alert, slightly slurred speech. Swearing at staff, attempting to lash out at staff with her hands.) - HEENT HEENT: Atraumatic - Neck Neck: Supple, no meningeal sign - Cardiac Cardiac: Other (Regular rate and rhythm on my examination) - Respiratory Respiratory: No respiratory distress, Clear bilaterally - Abdomen Abdomen: Other (Rotund, nontender to palpation all 4 quadrants) - Extremities Extremities: No deformity - Neuro Neuro: Alert and oriented X 3, pharmacy benefit manager 2-12 intact, No motor deficit, No sensory deficit - Psych Psych: Other (Agitated, at times explosive swearing at staff and tried to hit people, and other times she calms down and apologizes for behavior. Slightly slurred speech. No obvious delusions or hallucinations. She denies suicidal ideation at this time, endorses that she is very depressed) Results - Vitals Vitals: Oxygen O2 Source Room air - Labs Labs: Laboratory Tests 07/06/19 07/06/19 07/06/19 13:20 13:20 13:20 WBC 9.7 RBC 4.33 Hgb 13.5 Hct 39.4 MCV 91.0 MCH 31.2 H MCHC 34.3 RDW 14.8 Plt Count 286 MPV 9.7 Neut # (Auto) Not Reportable Lymph # (Auto) Not Reportable [place] # (Auto) Not Reportable Eos # (Auto) Not Reportable Baso # (Auto) Not Reportable Absolute Nucleated RBC Not Reportable Total Counted 100 Band Neuts % (Manual) 0 Reactive Lymphs % (Man) 39 Abnorm Lymph % (Manual) 0 Nucleated RBC % Not Reportable Neutrophils # (Manual) 2.8 Lymphocytes # (Manual) 6.5 H Monocytes # (Manual) 0.3 Eosinophils # (Manual) 0.1 Basophils # (Manual) 0.0 Differential Comment MANUAL DIFFERENTIAL Manual Slide Review Indicated PT INR Sodium 142 Potassium 3.6 Chloride 107 Carbon Dioxide 19 L Anion Gap 16.0 H BUN 14 Creatinine 0.7 Estimated GFR (MDRD) 87 L Glucose 137 H Calcium 8.9 Total Bilirubin 0.5 AST 25 ALT 26 Alkaline Phosphatase 73 Total Protein 6.9 Albumin 4.0 Globulin 2.9 Albumin/Globulin Ratio 1.4 Lipase 25 TSH 0.35 Serum HCG, Qual Urine Color Urine Clarity Urine pH Ur Specific [place] Urine Protein Urine Glucose (UA) Urine Ketones Urine Occult Blood Urine Nitrite Urine Bilirubin Urine Urobilinogen Ur Leukocyte Esterase Ur Microscopic Review Urine Culture Comments Salicylates < 6.0 Urine Opiates Screen Ur Oxycodone Screen Urine Methadone Screen Ur Propoxyphene Screen Acetaminophen < 10 L Ur Barbiturates Screen Ur Tricyclics Screen Ur Phencyclidine Scrn Ur Amphetamine Screen U Methamphetamines Scrn U Benzodiazepines Scrn Urine Cocaine Screen U Cannabinoids Screen Ethyl Alcohol 299.0 07/06/19 07/06/19 07/06/19 13:20 14:26 14:30 WBC RBC Hgb Hct MCV MCH MCHC RDW Plt Count MPV Neut # (Auto) Lymph # (Auto) [place] # (Auto) Eos # (Auto) Baso # (Auto) Absolute Nucleated RBC Total Counted Band Neuts % (Manual) Reactive Lymphs % (Man) Abnorm Lymph % (Manual) Nucleated RBC % Neutrophils # (Manual) Lymphocytes # (Manual) Monocytes # (Manual) Eosinophils # (Manual) Basophils # (Manual) Differential Comment Manual Slide Review PT 11.8 INR 1.0 Sodium Potassium Chloride Carbon Dioxide Anion Gap BUN Creatinine Estimated GFR (MDRD) Glucose Calcium Total Bilirubin AST ALT Alkaline Phosphatase Total Protein Albumin Globulin Albumin/Globulin Ratio Lipase TSH Serum HCG, Qual NEGATIVE Urine Color YELLOW Urine Clarity CLEAR Urine pH 5.[address] [place] [address] 1.010 Urine Protein NEGATIVE Urine Glucose (UA) NEGATIVE Urine Ketones NEGATIVE Urine Occult Blood NEGATIVE Urine Nitrite NEGATIVE Urine Bilirubin NEGATIVE Urine Urobilinogen 0.2 (NORMAL) Ur Leukocyte Esterase NEGATIVE Ur Microscopic Review NOT INDICATED Urine Culture Comments NOT INDICATED Salicylates Urine Opiates Screen NEGATIVE Ur Oxycodone Screen NEGATIVE Urine Methadone Screen NEGATIVE Ur Propoxyphene Screen NEGATIVE Acetaminophen Ur Barbiturates Screen NEGATIVE Ur Tricyclics Screen NEGATIVE Ur Phencyclidine Scrn NEGATIVE Ur Amphetamine Screen NEGATIVE U Methamphetamines Scrn NEGATIVE U Benzodiazepines Scrn NEGATIVE Urine Cocaine Screen NEGATIVE U Cannabinoids Screen NEGATIVE Ethyl Alcohol 07/06/19 23:59 WBC RBC Hgb Hct MCV MCH MCHC RDW Plt Count MPV Neut # (Auto) Lymph # (Auto) [place] # (Auto) Eos # (Auto) Baso # (Auto) Absolute Nucleated RBC Total Counted Band Neuts % (Manual) Reactive Lymphs % (Man) Abnorm Lymph % (Manual) Nucleated RBC % Neutrophils # (Manual) Lymphocytes # (Manual) Monocytes # (Manual) Eosinophils # (Manual) Basophils # (Manual) Differential Comment Manual Slide Review PT INR Sodium Potassium Chloride Carbon Dioxide Anion Gap BUN Creatinine Estimated GFR (MDRD) Glucose Calcium Total Bilirubin AST ALT Alkaline Phosphatase Total Protein Albumin Globulin Albumin/Globulin Ratio Lipase TSH Serum HCG, Qual Urine Color Urine Clarity Urine pH Ur Specific [place] Urine Protein Urine Glucose (UA) Urine Ketones Urine Occult Blood Urine Nitrite Urine Bilirubin Urine Urobilinogen Ur Leukocyte Esterase Ur Microscopic Review Urine Culture Comments Salicylates Urine Opiates Screen Ur Oxycodone Screen Urine Methadone Screen Ur Propoxyphene Screen Acetaminophen Ur Barbiturates Screen Ur Tricyclics Screen Ur Phencyclidine Scrn Ur Amphetamine Screen U Methamphetamines Scrn U Benzodiazepines Scrn Urine Cocaine Screen U Cannabinoids Screen Ethyl Alcohol 8.3 PD MEDICAL DECISION MAKING - ED course Complexity details: considered differential (Depression, alcohol intoxication, suicidal ideation, thyroid disturbance, electrolyte abnormality) ED course: On arrival patient is agitated and escalates to being violent, lashing out at staff. She was placed in restraints for her safety and for the safety of staff, she was given Haldol as well as midazolam. She had good improvement in her agitation and the restraints were removed, and afterwards she was actually quite cooperative. CBC is unremarkable, CMP shows very slightly elevated anion gap consistent with her alcohol use, glucoses in the 130s, TSH is normal, hCG is negative, urine is unremarkable, and her urine drug screen and tox screens are negative, other than she does have an ethanol level of 299. Social work was consulted, however since patient was not clinically sober based on her drawn ethanol level, they recommend DCR versus tele-psych. DCR was contacted. On serial exam she is becoming more sober, and by 2300 on 07/06 she is clinically sober with no ataxia in her gait, no slurred speech, she is eating, she is calm and cooperative. Repeat ethanol 8. Care was assumed by Dr. Camp then Dr. Vickers, She was evaluated and accepted for hospitalization at [facility], and transfer was arranged. Medication prescriptions and [place] completed by the above physicians. During my shift the day after her initial arrival she was transported to [facility], with no acute events prior to patient's transfer, she is well-appearing, cooperative. Departure - Departure Disposition: 65 Psych Hosp/Unit DC/Xfer Clinical Impression: Suicidal ideation, Alcohol abuse Condition: Stable Prescriptions: Atorvastatin Calcium 20 mg PO DAILY #20 tablet Escitalopram Oxalate 20 mg PO DAILY #20 tablet Lisinopril [Zestril] 40 mg PO DAILY #20 tablet Discharge Date/Time: 07/07/19 13:24
[2019-07-06 13:38] LABS: BASOPHILS % (AUTO) 0.6 %; EOSINOPHILS % (AUTO) 1.2 %; HGB - HEMOGLOBIN 13.5 g/dL (12.0-16.0); LYMPHOCYTES % (AUTO) 59.6 %; MEAN CORPUSCULAR HEMOGLOBIN 31.2 pg (27.0-31.0); MEAN CORPUSCULAR HGB CONC 34.3 g/dL (32.0-36.0); MEAN PLATELET VOLUME 9.7 fL (7.9-10.8); MONOCYTES % (AUTO) 3.6 %; NEUTROPHILS % (AUTO) 34.6 %; PLT - PLATELET COUNT 286 10^3/uL (130-450); RED BLOOD COUNT 4.33 10^6/uL (4.20-5.40); RED CELL DISTRIBUTION WIDTH 14.8 % (12.0-15.0); WHITE BLOOD COUNT 9.7 x10^3/uL (4.8-10.8)
[2019-07-06 13:42] LABS: ABNORMAL LYMPHS % (MANUAL) 0 %; BAND NEUTROPHILS % (MANUAL) 0 %
[2019-07-06 13:51] LABS: ACETAMINOPHEN < 10 ug/mL (10-30); ALBUMIN/GLOBULIN RATIO 1.4 (1.0-2.2); ALKALINE PHOSPHATASE 73 IU/L (42-121); ALT ALANINE AMINOTRANSFERASE 26 IU/L (10-60); AST ASPARTATE AMINOTRANSFERASE 25 IU/L (10-42); BILIRUBIN,TOTAL 0.5 mg/dL (0.2-1.0); BUN - BLOOD UREA NITROGEN 14 mg/dL (6-20); CALCIUM 8.9 mg/dL (8.5-10.3); CARBON DIOXIDE - CO2 19 mmol/L (21-32); CHLORIDE 107 mmol/L (101-111); CREATININE 0.7 mg/dL (0.4-1.0); GFR - MDRD 87 (>89); GLUCOSE 137 mg/dL (70-100); LIPASE 25 U/L (22-51); SALICYLATE < 6.0 mg/dL; SODIUM 142 mmol/L (135-145); TOTAL PROTEIN 6.9 g/dL (6.7-8.2)
[2019-07-06 13:57] LABS: HCG,QUALITATIVE BLOOD NEGATIVE
[2019-07-06 14:01] LABS: DIFFERENTIAL COMMENT MANUAL DIFFERENTIAL; EOSINOPHILS # (MANUAL) 0.1 10^3/uL (0-0.7); LYMPHOCYTES # (MANUAL) 6.5 10^3/uL (1.5-3.5); LYMPHOCYTES % (MANUAL) 28 %; MONOCYTES # (MANUAL) 0.3 10^3/uL (0.0-1.0)
[2019-07-06 14:34] LABS: PT - PROTHROMBIN TIME 11.8 secs (9.9-12.6)
[2019-07-06 14:40] LABS: MUDS CUTOFF CONCENTRATIONS CUTOFF CONC BELOW:
[2019-07-06 14:43] LABS: BILIRUBIN,URINE NEGATIVE (NEGATIVE); GLUCOSE, URINE (UA) NEGATIVE (NEGATIVE); KETONES,URINE (UA) NEGATIVE (NEGATIVE); LEUKOCYTE ESTERASE, URINE NEGATIVE (NEGATIVE); NITRITE,URINE NEGATIVE (NEGATIVE); OCCULT BLOOD,URINE NEGATIVE (NEGATIVE); PH,URINE 5.5 PH (5.0-7.5); PROTEIN,URINE NEGATIVE (NEGATIVE); UROBILINOGEN,URINE 0.2 (NORMAL) E.U./dL (NORMAL)
[2019-07-06 14:44] LABS: CLARITY,URINE CLEAR (CLEAR)
[2019-07-06 14:55] LABS: AMPHETAMINE SCREEN,URINE NEGATIVE (NEGATIVE); BENZODIAZEPINES SCREEN, URINE NEGATIVE (NEGATIVE); COCAINE SCREEN URINE NEGATIVE (NEGATIVE); METHADONE SCREEN, URINE NEGATIVE (NEGATIVE); METHAMPHETAMINES SCREEN, URINE NEGATIVE (NEGATIVE); OPIATE SCREEN, URINE NEGATIVE (NEGATIVE); OXYCODONE SCREEN, URINE NEGATIVE (NEGATIVE); PROPOXYPHENE SCREEN, URINE NEGATIVE (NEGATIVE); TRICYCLIC ANTIDEPRESSANT,URINE NEGATIVE (NEGATIVE)
[2019-07-06] MEDS ORDERED: LORazepam 1 MG TABLET PO STA (16:34)
[2019-07-06] MEDS ORDERED: NICOTINE 21 MG PATCH TOP STA (20:03)
[2019-07-07] MEDS ORDERED: LORazepam 2 MG/ML VIAL IVP STA ×2 (02:44→05:46)
[2019-07-07] MEDS ORDERED: ONDANSETRON 4 MG/2 ML VIAL IVP STA (06:03)
[2019-07-07] MEDS ORDERED: ONDANSETRON 4 MG/2 ML VIAL ONE (06:06)
[2019-07-07] MEDS ORDERED: IBUPROFEN 600 MG TABLET PO STA (12:01)
[2019-07-07] MEDS ORDERED: LORazepam 1 MG TABLET PO STA (12:01)
[2019-07-07] MEDS ORDERED: NICOTINE 21 MG PATCH TOP STA (12:02)
--- NOTE | 2019-07-07 12:03 | ED Physician Documentation ---
ED Addendum - Addendum Addendum: 07/07/19 12:03 Patient is awaiting transport in about an hour and requested of ativan, ibuprofen for the transfer and also a new nicotine patch. These orders were provided.
[2019-07-07 13:06] VITALS: BP 175/96
== END 2019-07-07 13:24 ==
LOC: EDUNIT# → ED 12:56
DX: R45.851 Suicidal ideations (principal); F10.129 Alcohol abuse with intoxication, unspecified; R45.1 Restlessness and agitation; R45.6 Violent behavior; I10 Essential (primary) hypertension; F17.200 Nicotine dependence, unspecified, uncomplicated; Z78.1 Physical restraint status
CPT/HCPCS: 36415; 80053; 80306; 80307; 80320; 80329; 81003; 83690; 84443; 84703; 85025; 85610; 99281; 99285; A9270; J2060; J8499; 81001; 87086